=== PATIENT | female | born 1955 | race Caucasian/White ===

== ENCOUNTER 2021-12-13 07:12 | Emergency (ER) | payer MEDICARE, BC ==
[~2021-12-13] VITALS: Ht 147.3 cm; Wt 56.7 kg
--- NOTE | 2021-12-13 07:21 | NUR ---
[id number] HOME ABDOMINAL PAIN, NAUSEA AND VOMITING X 2 DAYS. VITALS ARE WITHIN NORMAL LIMITS. BREATHINS IS EVEN AND UNLABORED. PROVIDED WITH WARM BLANKET FOR COMFORT. AWAITING MD COSTA.
[2021-12-13] MEDS ORDERED: IV NS 0.9% 1,000 ML BAG IV ONE (07:30)
[2021-12-13] MEDS ORDERED: ONDANSETRON HCL/PF 4 MG/2 ML VIAL IVP ONE (07:30)
[2021-12-13] MEDS ORDERED: ONDANSETRON HCL/PF 4 MG/2 ML VIAL ONE (07:32)
[2021-12-13 08:00] LABS: BASOPHILS % (AUTO) 0.7 % (0.0-2.0); EOSINOPHILS % (AUTO) 0.3 % (0.0-6.0); HEMATOCRIT 42 % (33-45); HEMOGLOBIN 14.2 g/dL (11.5-14.8); LYMPHOCYTES # (AUTO) 0.9 K/uL (0.8-4.8); LYMPHOCYTES % (AUTO) 15.1 % (20.0-44.0); MEAN CORPUSCULAR HGB CONC 34 g/dl (31.0-36.0); MEAN CORPUSCULAR VOLUME 91 fL (82-100); MONOCYTES # (AUTO) 0.6 K/uL (0.1-1.30); MONOCYTES % (AUTO) 10.5 % (2.0-12.0); NEUTROPHILS # (AUTO) 4.3 K/uL (1.8-8.9); NEUTROPHILS % (AUTO) 73.4 % (43.0-81.0); PLATELET COUNT (AUTO) 436 K/uL (150-450); RED BLOOD CELL COUNT(AUTO) 4.65 MIL/uL (4.0-5.2); WHITE BLOOD COUNT (AUTO) 5.8 K/uL (4.3-11.0)
--- NOTE | 2021-12-13 08:08 | NUR ---
PT TAKEN TO CT
[2021-12-13 08:45] LABS: ALBUMIN 4.1 g/dL (3.4-5.0); BILIRUBIN,DIRECT 0.1 mg/dL (0.0-0.2); BILIRUBIN,TOTAL 0.4 mg/dL (0.2-1.0); CREATININE 1.1 mg/dL (0.6-1.3); TOTAL PROTEIN, SERUM 7.7 g/dL (6.4-8.2)
--- NOTE | 2021-12-13 09:39 | NUR ---
CALLED [facility] REPORT WILL BE FAXED TO US SHORTLY.
[2021-12-13] MEDS ORDERED: POLY17PO4 PO (09:45)
[2021-12-13] MEDS ORDERED: ONDA4TAB11 PO (09:45)
[2021-12-13] MEDS ORDERED: DOCU-141 PO (09:45)
[2021-12-13] MEDS ORDERED: MAGNESIUM CITRATE 296 ML BOTTLE ONE (09:57)
[2021-12-13] MEDS ORDERED: MAGNESIUM CITRATE 296 ML BOTTLE PO ONE (10:00)
--- NOTE | 2021-12-13 10:20 | NUR ---
Patient discharged to home in stable condition. Written and verbal after care instructions given. Patient verbalizes understanding of instruction.IV removed. Catheter intact and site benign. Pressure and 4x4 applied to site. No bleeding noted.
[2021-12-13 10:21] VITALS: BP 137/76
== END 2021-12-13 10:21 | disposition home or self-care (01) ==
LOC: ER 07:16
DX: K59.00 Constipation, unspecified (principal); R10.32 Left lower quadrant pain; R10.31 Right lower quadrant pain; R11.2 Nausea with vomiting, unspecified; K21.9 Gastro-esophageal reflux disease without esophagitis; F32.9 Major depressive disorder, single episode, unspecified; G47.00 Insomnia, unspecified; Z79.1 Long term (current) use of non-steroidal anti-inflammatories (NSAID); Z79.899 Other long term (current) drug therapy
CPT/HCPCS: 36415; 74176; 76705; 80048; 80076; 83690; 85025; 96361; 96374; 99285; J2405

== ENCOUNTER 2022-03-13 11:28 | Emergency (ER) | payer MEDICARE, BC ==
[~2022-03-13] VITALS: Ht 157.5 cm; Wt 48.2 kg
[~2022-03-13 11:28] MED LIST: DOCU-141 PO; ONDA4TAB11 PO; POLY17PO4 PO
--- NOTE | 2022-03-13 11:40 | NUR ---
Recived pt 67 yrs female came by addie ESTRADA [id number] from home c/o anxity respiration spon and easy no distress awake no sob or distress
--- NOTE | 2022-03-13 12:29 | NUR ---
EXAMINE BY DR. LOPEZ and refused blood to drow and requseted to sign AMA AND TO Leave
--- NOTE | 2022-03-13 13:17 | NUR ---
PT refused blood drow or ed work up and said i feel fine and i want to go home now my o2 sat is now batter i did not want to be here DR. LOPEZ aware pt d/c home and explained to pt risk for leaving AMA pt fully awke and alert and understood
[2022-03-13 13:41] VITALS: BP 122/87
== END 2022-03-13 13:41 | disposition left against medical advice (07) ==
LOC: ER 11:30
DX: F41.9 Anxiety disorder, unspecified (principal); R06.02 Shortness of breath; K21.9 Gastro-esophageal reflux disease without esophagitis; F32.A Depression, unspecified; Z79.899 Other long term (current) drug therapy